=== PATIENT | male | born 1955 | race Caucasian/White ===

== ENCOUNTER 2021-12-16 12:15 | Emergency (ER) | payer OTHER, MEDICARE ==
[2021-12-16 12:36] LABS: BASOPHIL 0.6 % (0-2); EOSINOPHIL 3.5 % (0-7); HCT 47.5 % (42.0-52.0); HGB 16.1 g/dl (13.2-18.0); LYMPHOCYTE 22.3 % (15-48); MCH 28.1 pg (25.0-31.0); MCHC 33.9 g/dL (32.0-36.0); MCV 82.9 fL (78.0-100.0); MONOCYTE 12.9 % (0-12); MPV 9.5 fL (6.0-9.5); NEUTROPHIL 60.4 % (41-80); NRBC 0; PLT 228 K/uL (150-400); RBC 5.73 M/uL (4.70-6.00); RDW 13.4 % (11.5-14.0); WBC 7.2 K/uL (4.0-10.5)
[2021-12-16 13:01] LABS: INR 1.07 (0.9-1.2); PROTHROMBIN TIME 13.6 SECONDS (11.9-13.9); PTT 28.5 SECONDS (24.9-34.6)
[2021-12-16 13:14] LABS: ALBUMIN 3.8 g/dL (3.4-5.0); BILIRUBIN - TOTAL 0.5 mg/dL (0.2-1.0); BUN/CREAT RATIO (CALC) 14.6 RATIO; CREATININE 1.23 mg/dL (0.67-1.17); GLOBULIN (CALCULATION) 3.9 g/dL; POTASSIUM 3.9 mmol/L (3.5-5.1); TOTAL PROTEIN 7.7 g/dL (6.4-8.2)
== END 2021-12-16 16:25 | disposition home or self-care (01) ==
LOC: FER 12:15
PROVIDERS: Emergency Medicine
DX: R07.89 Other chest pain (principal); E11.9 Type 2 diabetes mellitus without complications; Z28.310 Unvaccinated for COVID-19; Z88.0 Allergy status to penicillin; Z86.73 Personal history of transient ischemic attack (TIA), and cerebral infarction without residual deficits
CPT/HCPCS: 36415; 71045; 80053; 84484; 85025; 85610; 85730; 93005